=== PATIENT | male | born 1985 | race Caucasian/White ===

== ENCOUNTER → 2019-11-17 | Outpatient (CLI) | payer OTHER ==
[2019-11-17 11:25] LABS: BASOPHILS ABSOLUTE AUTO 0.03 K/mm3 (0.00-0.23); BASOPHILS PERCENT AUTO 1 % (0-2); EOSINOPHILS ABSOLUTE AUTO 0.07 K/mm3 (0.00-0.68); EOSINOPHILS PERCENT AUTO 1 % (0-6); Hemoglobin 14.2 g/dL (13.5-17.5); IMMATURE GRAN ABSOLUTE AUTO 0.04 K/mm3 (0.00-0.10); IMMATURE GRAN PERCENT AUTO 1 % (0-1); LYMPHOCYTES ABSOLUTE AUTO 1.01 K/mm3 (0.84-5.20); LYMPHOCYTES PERCENT AUTO 15 % (21-46); MONOCYTES ABSOLUTE AUTO 0.36 K/mm3 (0.16-1.47); MONOCYTES PERCENT AUTO 5 % (4-13); Mean Corpuscular HGB 28.9 pg (26.0-34.0); Mean Corpuscular HGB Conc 33.8 g/dL (31.5-36.5); Mean Corpuscular Volume 85 fL (80-100); Mean Platelet Volume 10.2 fL (9.1-12.4); NEUTROPHILS ABSOLUTE AUTO 5.14 K/mm3 (1.96-9.15); NEUTROPHILS PERCENT AUTO 77 % (41-73); Platelet Count 250 K/mm3 (150-400); RDW Coefficient Variation 12.6 % (11.7-14.2); RDW Standard Deviation 38.6 fL (35.1-46.3); Red Blood Cell Count 4.92 M/mm3 (4.30-5.90); White Blood Cell Count 6.65 K/mm3 (4.00-11.30)
[2019-11-17 11:45] LABS: Alanine Aminotransfer (ALT/SGP 48 U/L (12-78); Albumin/Globulin Ratio 1.1 (0.8-1.8); Alk Phos 60 U/L (50-136); Anion Gap 5 mmol/L (6-16); Aspartate Aminotrans (AST/SGOT 23 U/L (12-37); Bilirubin, Total 0.4 mg/dL (0.1-1.0); Blood Urea Nitrogen 10 mg/dL (8-24); Bun/Creatinine Ratio 10.7 (12.0-20.0); CO2, Blood 29 mmol/L (21-32); Calcium, Blood 9.1 mg/dL (8.5-10.1); Chloride, Blood 103 mmol/L (98-108); Creatinine, Blood 0.94 mg/dL (0.60-1.20); Globulin, Blood 3.8 g/dL (2.2-4.0); Glomerular Filtration Rate >60 (60-); Glucose, Blood 127 mg/dL (70-99); Potassium, Blood 3.7 mmol/L (3.5-5.5); Sodium, Blood 137 mmol/L (136-145); Total Protein, Blood 7.8 g/dL (6.4-8.2)
== END | disposition home or self-care (01) ==
LOC: LAB SHORT 11:19 → LAB 11:19
PROVIDERS: Physician Assistant
DX: R10.9 Unspecified abdominal pain (principal); R30.0 Dysuria
CPT/HCPCS: 80053; 85025; 87086

== ENCOUNTER 2020-03-01 14:48 | Inpatient (IN) | payer OTHER ==
[~2020-03-01] VITALS: Ht 177.8 cm; Wt 80.6 kg
[2020-03-01 15:44] LABS: Hematocrit 41.5 % (37.0-53.0); Hemoglobin 13.9 g/dL (13.5-17.5); Mean Corpuscular HGB 28.4 pg (26.0-34.0); Mean Corpuscular HGB Conc 33.5 g/dL (31.5-36.5); Mean Corpuscular Volume 85 fL (80-100); Mean Platelet Volume 10.1 fL (9.1-12.4); Platelet Count 143 K/mm3 (150-400); RDW Standard Deviation 43.1 fL (35.1-46.3)
[2020-03-01 16:07] LABS: Alanine Aminotransfer (ALT/SGP 238 U/L (12-78); Albumin, Blood 3.2 g/dL (3.4-5.0); Albumin/Globulin Ratio 0.7 (0.8-1.8); Alk Phos 191 U/L (50-136); Anion Gap 9 mmol/L (6-16); Aspartate Aminotrans (AST/SGOT 139 U/L (12-37); Bilirubin, Total 2.8 mg/dL (0.1-1.0); Blood Urea Nitrogen 5 mg/dL (8-24); Bun/Creatinine Ratio 6.9 (12.0-20.0); CO2, Blood 27 mmol/L (21-32); Calcium, Blood 8.8 mg/dL (8.5-10.1); Chloride, Blood 99 mmol/L (98-108); Creatinine, Blood 0.73 mg/dL (0.60-1.20); Globulin, Blood 4.4 g/dL (2.2-4.0); Glomerular Filtration Rate >60 (60-); Glucose, Blood 90 mg/dL (70-99); Potassium, Blood 3.5 mmol/L (3.5-5.5); Sodium, Blood 135 mmol/L (136-145); Total Protein, Blood 7.6 g/dL (6.4-8.2)
[2020-03-01 17:09] LABS: Troponin I <0.015 ng/mL (0.000-0.040)
[2020-03-01 17:19] LABS: BAND PERCENT MAN 8 % (0-8); BASOPHILS PERCENT MAN 0 % (0-2); EOSINOPHILS PERCENT MAN 0 % (0-6); LYMPHOCYTES PERCENT MAN 53 % (21-46); MONOCYTES ABSOLUTE MAN 1.31 K/mm3 (0.16-1.47); MONOCYTES PERCENT MAN 5 % (4-13); NEUTROPHILS ABSOLUTE MAN 6.28 K/mm3 (1.96-9.15); SEG NEUTROPHILS PERCENT MAN 16 % (41-73); TOTAL CELLS COUNTED 100
[2020-03-01 17:21] LABS: LYMPHOCYTES % ATYPICAL MANUAL 18 % (0-0)
[2020-03-01 17:42] LABS: Source, Urine Clean Catch
[2020-03-01 18:06] LABS: Appearance, Urine Clear (Clear); Bilirubin, Urine Neg (Neg); Blood, Urine 1+ (Neg); Color, Urine Yellow (P-Yellow); Glucose Qualitative, Urine Neg (Neg); Ketones, Urine 1+ (Neg); Leukocyte Esterase, Urine Neg (Neg); Nitrite, Urine Neg (Neg); Protein, Urine Neg (Neg); Specific Gravity, Urine 1.005 (1.003-1.022); Urobilinogen, Urine NORM (Normal)
[2020-03-01 18:23] LABS: Bacteria Few /hpf; Squamous Epithelial Cells Rare /hpf (Few); White Blood Cells, Urine 0-2 /hpf (0-5)
[2020-03-01 18:24] LABS: Amorphous Light (0-Heavy)
[2020-03-01 19:51] LABS: U Amphetamine Screen Not Detected; U Barbituate Screen Not Detected; U Benzodiazapine Screen Not Detected; U Buprenorphine Screen Not Detected; U Cannabinoids Screen Not Detected; U Cocaine Screen Not Detected; U Methadone Screen Not Detected; U Methamphetamine Screen Not Detected; U Opiates Screen Not Detected; U Oxycodone Screen Not Detected; U Phencyclidine Screen Not Detected; U Propoxyphene Screen Not Detected
--- NOTE | 2020-03-01 22:00 | NUR ---
ADMIT NOTE PT ARRIVED TO PCU FROM ED AT APPROX 2130. PT AMBULATED INDEPENDENTLY FROM ED STRETCHER TO PCU BED. PT A&OX4. GOOD HISTORIAN, ANSWERS QUESTIONS APPROPRIATELY. SP02>92% ON RA. TELMETRY READS SINUS TACH, HR 113. PT C/O PAIN IN NECK, R SIDE OF NECK/JAW VISIBILY SWOLLEN. PT STATES IT IS "TENDER WHEN SLEEPING OR PRESSING ON IT". DENIES ANY ISSUES SWALLOWING OR BREATHING. PT AMBULATED (WITH ASSISTANCE D/T IV INFUSING) TO BATHROOM. LR INFUSING PER EMAR. PT ORIENTED TO ROOM. CALL LIGHT IN REACH. WILL CONTINUE TO MONITOR.
--- NOTE | 2020-03-01 22:30 | NUR ---
CRITICAL LAB LAB CALLED TO NOTIFY OF LACTIC ACID, 3.0. THIS IS UP FROM PREVIOUS LACTIC ACID OF 2.8. NOTIFIED CHARGE NURSE WHO INSTRUCTED TO NOTIFY PROVIDER. CALL PLACED TO MD AWAD. MD AWAD WITH INSTRUCTIONS TO KEEP LR INFUSING PER EMAR AND REPEAT LACTIC ACID LAB IN 4 HOURS. WILL CONTINUE TO MONITOR.
--- NOTE | 2020-03-02 01:29 | NUR ---
EMESIS PT C/O OF THROAT PAIN 07/20. MEDICATED WITH IBPROFEN PER EMAR. SHORTLY AFTER, PT C/O OF NAUSEA AND VOMITED BROWN, CHUNKY EMESIS. MEDICATED W/ ZOFRAN PER EMAR. PT DENIED NAUSEA AFTER RECEIVING ZOFRAN. PT TEMPERATURE ELEVATED TO 102. CALL PLACED TO MD AWAD. MD AWAD WITH ORDERS FOR IV TORADOL. WILL CONTINUE TO MONITOR.
[2020-03-02 02:47] LABS: Hemoglobin 11.5 g/dL (13.5-17.5); Mean Corpuscular HGB 28.4 pg (26.0-34.0); Mean Corpuscular HGB Conc 33.8 g/dL (31.5-36.5); Mean Corpuscular Volume 84 fL (80-100); Mean Platelet Volume 10.1 fL (9.1-12.4); Platelet Count 120 K/mm3 (150-400); RDW Coefficient Variation 13.7 % (11.7-14.2); RDW Standard Deviation 42.4 fL (35.1-46.3); Red Blood Cell Count 4.05 M/mm3 (4.30-5.90); White Blood Cell Count 21.57 K/mm3 (4.00-11.30)
[2020-03-02 03:06] LABS: Alanine Aminotransfer (ALT/SGP 179 U/L (12-78); Albumin, Blood 2.7 g/dL (3.4-5.0); Albumin/Globulin Ratio 0.8 (0.8-1.8); Alk Phos 160 U/L (50-136); Anion Gap 10 mmol/L (6-16); Aspartate Aminotrans (AST/SGOT 112 U/L (12-37); Bilirubin, Total 2.9 mg/dL (0.1-1.0); Blood Urea Nitrogen 7 mg/dL (8-24); CO2, Blood 25 mmol/L (21-32); Calcium, Blood 8.3 mg/dL (8.5-10.1); Chloride, Blood 100 mmol/L (98-108); Globulin, Blood 3.6 g/dL (2.2-4.0); Glomerular Filtration Rate >60 (60-); Glucose, Blood 91 mg/dL (70-99); Potassium, Blood 3.6 mmol/L (3.5-5.5); Sodium, Blood 135 mmol/L (136-145); Total Protein, Blood 6.3 g/dL (6.4-8.2)
[2020-03-02 03:23] LABS: BAND PERCENT MAN 14 % (0-8); BASOPHILS ABSOLUTE MAN 0.21 K/mm3 (0.00-0.23); BASOPHILS PERCENT MAN 1 % (0-2); EOSINOPHILS PERCENT MAN 0 % (0-6); LYMPHOCYTES % ATYPICAL MANUAL 25 % (0-0); LYMPHOCYTES ABSOLUTE MAN 10.35 K/mm3 (0.84-5.20); LYMPHOCYTES PERCENT MAN 23 % (21-46); METAMYELOCYTE ABSOLUTE MAN 0.43 K/mm3 (0.00-0.00); METAMYELOCYTE PERCENT MAN 2 % (0-0); MONOCYTES ABSOLUTE MAN 1.72 K/mm3 (0.16-1.47); MONOCYTES PERCENT MAN 8 % (4-13); NEUTROPHILS ABSOLUTE MAN 8.84 K/mm3 (1.96-9.15); SEG NEUTROPHILS PERCENT MAN 27 % (41-73); TOTAL CELLS COUNTED 100
--- NOTE | 2020-03-02 03:28 | NUR ---
CRITICAL LAB LAB CALLED TO NOTIFY OF CRITICAL LAB VALUE: LACTIC ACID 2.7. THIS IS DOWN FROM PREVIOUS LACTIC ACID VALUE OF 3.0. DISCUSSED WITH CHARGED NURSE AND DETERMINED IT IS TRENDING IN RIGHT DIRECTION. LR INFUSING PER EMAR. WILL CONTINUE TO MONITOR.
--- NOTE | 2020-03-02 06:09 | NUR ---
SHIFT SUMMARY PT A&OX4. GOOD HISTORIAN, ANSWERS QUESTIONS APPROPRIATELY. SP02>92% ON RA. TELMETRY READS SINUS TACH, HR 110'S-120'S. PT C/O PAIN IN NECK, R SIDE OF NECK/JAW VISIBILY SWOLLEN. PT STATES IT IS "TENDER WHEN SLEEPING OR PRESSING ON IT". C/O IT ALSO HURTS WHEN SWALLOWING. MEDICATED WITH TORADAL PER EMAR WITH SUCCESSFUL PAIN RELIEF. PT HAD AN EPISODE OF EMESIS THIS SHIFT, SEE PREVIOUS NOTE. PT AMBULATED (WITH ASSISTANCE D/T IV INFUSING) TO BATHROOM THIS SHIFT. LR INFUSING PER EMAR. CALL LIGHT IN REACH. WILL CONTINUE TO MONITOR.
--- NOTE | 2020-03-02 08:45 | NUR ---
PATIENT'S AST AND ALT LEVELS NOTED TO BE ELEVATED, WILL CLARIFY WITH DR. MEYERS BEFORE ADMINISTERING TYLENOL. WILL ADMINISTER TORADOL FOR FEVER PER EMAR.
--- NOTE | 2020-03-02 16:46 | NUR ---
PT SUMMARY; PT WAS RUNNING A FEVER OF 101.1 THIS AFTERNOON PT HAS TORADOL 30MG Q6 SCHEDULED TEMP WENT [place]OWN TO 99.2 30 MINS AFTER LAST DOSE OF TORADOL WAS ADMINISTERED, PT STATED HE DIDNT HAVE MUCH PAIN IN HIS THROAT TODAY SINCE TORADOL WAS STARTED. NO OTHER ACUTE ISSUES ENCOUNTERED FOR THE SHIFT, PT IS INDEPENDENT IN THE ROOM PT HAD A SHOWER TODAY. CONTINUES ON IV ABO, LR RUNNING AT 100MLS/HR. DR COFFEY CAME AND SAW PT TODAY NO NEW ORDERS AT THIS TIME. PT HAS BEEN IN BED RESTING MOST OF THE SHIFT. VITALS HRR TACH UP TO 120'S-140'S WITH EXERTION, BP SYSTOLIC 120'S, SATS ABOVE 95% ON RA. WILL MONITOR PT UNTIL OF SHIFT
--- NOTE | 2020-03-02 20:25 | NUR ---
CALLED DR. MEYERS. NOTIFIED HIM PATIENT'S TEMPERATURE WAS 100.6, NEXT TORADOL DOSE NOT DUE UNTIL 2200. LACTATED RINGERS HAS JUST BEEN DISCONTINUED. HEART RATE UP TO 130'S-140'S WHEN UP TO BATHROOM. PATIENT 34 YEARS OLD. ORDERS RECEIVED FOR LACTATED RINGERS 200 MLS/HR X1 LITER AND TYLENOL 650 MG PO Q6H PRN FEVER/PAIN. DR. MEYERS AWARE PATIENT HAS TWO MORE DOSES OF TORADOL ORDERED AND STATES OK TO GIVE TYLENOL ALONG WITH TORADOL. NOTIFIED DR. MEYERS PATIENT ALSO REQUESTING SOMETHING FOR SLEEP, ORDERS RECEIVED FOR MELATONIN 5 MG PO X1 BEDTIME.
--- NOTE | 2020-03-02 22:19 | NUR ---
CALLED DR. MEYERS AND READ HIM PATIENT'S LFTS. DR. MEYERS STATED IT WAS OK TO ADMINISTER TYLENOL.
[2020-03-03 04:14] LABS: Hemoglobin 11.8 g/dL (13.5-17.5); Mean Corpuscular HGB 28.5 pg (26.0-34.0); Mean Corpuscular HGB Conc 33.7 g/dL (31.5-36.5); Mean Corpuscular Volume 85 fL (80-100); Mean Platelet Volume 9.7 fL (9.1-12.4); Platelet Count 123 K/mm3 (150-400); RDW Standard Deviation 43.8 fL (35.1-46.3); Red Blood Cell Count 4.14 M/mm3 (4.30-5.90); White Blood Cell Count 20.95 K/mm3 (4.00-11.30)
[2020-03-03 04:29] LABS: Magnesium, Blood 1.8 mg/dL (1.6-2.4)
[2020-03-03 04:30] LABS: Alanine Aminotransfer (ALT/SGP 167 U/L (12-78); Albumin, Blood 2.6 g/dL (3.4-5.0); Albumin/Globulin Ratio 0.7 (0.8-1.8); Alk Phos 161 U/L (50-136); Anion Gap 8 mmol/L (6-16); Aspartate Aminotrans (AST/SGOT 132 U/L (12-37); Bilirubin, Total 2.5 mg/dL (0.1-1.0); Blood Urea Nitrogen 7 mg/dL (8-24); Bun/Creatinine Ratio 9.7 (12.0-20.0); CO2, Blood 28 mmol/L (21-32); Calcium, Blood 8.3 mg/dL (8.5-10.1); Chloride, Blood 99 mmol/L (98-108); Creatinine, Blood 0.72 mg/dL (0.60-1.20); Globulin, Blood 3.9 g/dL (2.2-4.0); Glomerular Filtration Rate >60 (60-); Glucose, Blood 85 mg/dL (70-99); Potassium, Blood 3.5 mmol/L (3.5-5.5); Sodium, Blood 135 mmol/L (136-145); Total Protein, Blood 6.5 g/dL (6.4-8.2)
--- NOTE | 2020-03-03 05:50 | NUR ---
SHIFT SUMMARY: PATIENT A/OX3. REPORTED PAIN IN THROAT AND NECK WITH SWALLOWING RATED 2/10, REPORTS ADEQUATE PAIN CONTROL WITH SCHEDULED TORADOL. HAD MD ELIZA NOTIFIED, ORDERS RECEIVED FOR LR AT 200 MLS/HR X1 LITER AND FOR TYLENOL (MD AWARE OF ELEVATED LIVER ENZYMES). HEART RATE UP TO 120'S AT TIMES WITH ACTIVITY BUT HAS MOSTLY BEEN IN THE 100'S-1TEENS. MELATONIN GIVEN FOR SLEEP, PATIENT ABLE TO SLEEP FOR A FEW HOURS. WILL CONTINUE TO MONITOR AND REPORT TO ONCOMING RN.
[2020-03-03 05:56] LABS: BAND PERCENT MAN 6 % (0-8); BASOPHILS PERCENT MAN 0 % (0-2); EOSINOPHILS PERCENT MAN 0 % (0-6); LYMPHOCYTES % ATYPICAL MANUAL 23 % (0-0); LYMPHOCYTES ABSOLUTE MAN 13.82 K/mm3 (0.84-5.20); LYMPHOCYTES PERCENT MAN 43 % (21-46); MONOCYTES ABSOLUTE MAN 2.09 K/mm3 (0.16-1.47); MONOCYTES PERCENT MAN 10 % (4-13); NEUTROPHILS ABSOLUTE MAN 5.02 K/mm3 (1.96-9.15); SEG NEUTROPHILS PERCENT MAN 18 % (41-73); TOTAL CELLS COUNTED 100
[2020-03-03 11:07] LABS: HIV SCREEN 4TH GENERATION WRFX Non Reactive (Non Reactive)
--- NOTE | 2020-03-03 17:39 | NUR ---
PT SUMMARY: NO ACUTE CHANGE A THIS TIME, VITALS STABLE AFEBRILE. PT HAS BEEN INDEPENDENT IN THE ROOM. FOR POSSIBLE DISCHARGE TOMORROW IF STABLE. IV ABO SWITCHED TO CLINDAMYCIN, STEROIDS 125MG X 2 GIVEN. PT DENIES PAIN FOR THE SHIFT, STATED HE'S FEELING A LOT MUCH BETTER, LYMPH NODE ON LEFT NECK HAS GOTTEN SMALLER. MOTHER WAS IN TO VISIT. NO OTHER ISSUES ENCOUNTERED FOR THE SHIFT, PT ABLE TO MAKE NEEDS KNOWN, CALL LIGHTS IN REACH.
[2020-03-04 03:59] LABS: Hematocrit 34.5 % (37.0-53.0); Hemoglobin 11.6 g/dL (13.5-17.5); Mean Corpuscular HGB Conc 33.6 g/dL (31.5-36.5); Mean Corpuscular Volume 83 fL (80-100); Mean Platelet Volume 10.4 fL (9.1-12.4); Platelet Count 148 K/mm3 (150-400); RDW Coefficient Variation 13.7 % (11.7-14.2); RDW Standard Deviation 41.9 fL (35.1-46.3); Red Blood Cell Count 4.14 M/mm3 (4.30-5.90); White Blood Cell Count 14.88 K/mm3 (4.00-11.30)
[2020-03-04 04:28] LABS: Alanine Aminotransfer (ALT/SGP 175 U/L (12-78); Albumin, Blood 2.8 g/dL (3.4-5.0); Albumin/Globulin Ratio 0.6 (0.8-1.8); Alk Phos 181 U/L (50-136); Anion Gap 8 mmol/L (6-16); Aspartate Aminotrans (AST/SGOT 135 U/L (12-37); Bilirubin, Total 2.2 mg/dL (0.1-1.0); Blood Urea Nitrogen 9 mg/dL (8-24); Bun/Creatinine Ratio 13.2 (12.0-20.0); CO2, Blood 28 mmol/L (21-32); Calcium, Blood 8.5 mg/dL (8.5-10.1); Chloride, Blood 98 mmol/L (98-108); Creatinine, Blood 0.68 mg/dL (0.60-1.20); Globulin, Blood 4.5 g/dL (2.2-4.0); Glomerular Filtration Rate >60 (60-); Glucose, Blood 142 mg/dL (70-99); Potassium, Blood 3.7 mmol/L (3.5-5.5); Sodium, Blood 134 mmol/L (136-145); Total Protein, Blood 7.3 g/dL (6.4-8.2)
[2020-03-04 04:57] LABS: BAND PERCENT MAN 11 % (0-8); BASOPHILS PERCENT MAN 0 % (0-2); EOSINOPHILS PERCENT MAN 0 % (0-6); LYMPHOCYTES % ATYPICAL MANUAL 19 % (0-0); LYMPHOCYTES ABSOLUTE MAN 8.03 K/mm3 (0.84-5.20); LYMPHOCYTES PERCENT MAN 35 % (21-46); METAMYELOCYTE ABSOLUTE MAN 0.14 K/mm3 (0.00-0.00); METAMYELOCYTE PERCENT MAN 1 % (0-0); MONOCYTES ABSOLUTE MAN 1.33 K/mm3 (0.16-1.47); MONOCYTES PERCENT MAN 9 % (4-13); NEUTROPHILS ABSOLUTE MAN 5.35 K/mm3 (1.96-9.15); SEG NEUTROPHILS PERCENT MAN 25 % (41-73); TOTAL CELLS COUNTED 100
--- NOTE | 2020-03-04 05:09 | NUR ---
SHIFT SUMMARY NO ACUTE CHANGES THIS SHIFT. PT ALERT, ORIENTED X4. SP02>92% ON RA. NO TELEMETRY, PT MED NO TELE STATUS. BP STABLE, HR 110'S. PT STATES MINIMAL PAIN IN THROAT WHEN SWALLOWING, DENIES PAIN MEDICATION. ANTIBIOTICS INFUSED THIS SHIFT PER EMAR. PT UP TO BATHROOM INDEPENDENTLY SEVERAL TIMES THIS SHIFT. PT SLEPT MAJORITY OF NIGHT. CALL LIGHT IN REACH. WILL CONTINUE TO MONITOR.
[2020-03-04] MEDS ORDERED: NAPR500 PO (11:19)
[2020-03-04] MEDS ORDERED: Clindamycin HC300 MG PO (11:19)
--- NOTE | 2020-03-04 12:04 | NUR ---
PT A&OX4 INDIPENDENT, DENIES N/V/P. PT TOLERATING PO INTAKE. DISHCHARGE PAPERWORK REVIEWED WITH STUDENT RN AND COPY PROVIDED. MEDICATIONS FAXED TO PREFERRED PHARMACY. PT ESCORTED IN WHEELCHAIR VIA HOSPITAL VOLUNTEER. PT IS TO GO HOME VIA FRIEND IN PERSONAL VEHICLE.
[2020-03-04 13:08] LABS: EBV AB VCA, IGG >600.0 U/mL (0.0-17.9); EBV NUCLEAR ANTIGEN AB, IGG <18.0 U/mL (0.0-17.9)
== END 2020-03-04 11:40 | disposition home or self-care (01) | DRG 872 ==
LOC: ER 14:48 → PCU 14:49 → ER 21:25 → PCU 21:29
PROVIDERS: Emergency Medicine; Internal Medicine; Physician Assistant; ADMIT Family Medicine
DX: A41.9 Sepsis, unspecified organism (principal); K12.2 Cellulitis and abscess of mouth; D69.6 Thrombocytopenia, unspecified; B27.90 Infectious mononucleosis, unspecified without complication; R16.1 Splenomegaly, not elsewhere classified; F17.290 Nicotine dependence, other tobacco product, uncomplicated; R65.20 Severe sepsis without septic shock
CPT/HCPCS: 36415; 70490; 71045; 74177; 80053; 81001; 82728; 83605; 83690; 83735; 84443; 84484; 85025; 86308; 86664; 86665; 87040; 87389; 93005; 93010; 96361; 96365; 96375; 99285-25; A9270; J0295; J1200; J1650; J1885; J2405; J2543; J2930; J7030; J7050; J7120; Q9967

== ENCOUNTER → 2020-07-24 | Outpatient (CLI) | payer OTHER ==
[~2020-07-24] MED LIST: Clindamycin HC300 MG PO; NAPR500 PO
== END | disposition home or self-care (01) ==
LOC: LAB SHORT 14:19
DX: J02.9 Acute pharyngitis, unspecified (principal)
CPT/HCPCS: 87081